=== PATIENT | male | born 1945 | race Caucasian/White ===

== ENCOUNTER 2021-08-20 10:43 | Emergency (ER) | payer OTHER ==
[~2021-08-20] VITALS: Ht 160 cm; Wt 69.9 kg
[2021-08-20 10:50] VITALS: BP 180/87
--- NOTE | 2021-08-20 11:00 | NUR ---
75 y/o M BIB son c/o abdominal pain, nausea, vomiting x 1 day. Patient A&Ox4, ambulatory, reports seen at PCP earlier for symptoms and advised for ER evaluation to r/o pancreatitis and uncontrolled DM. Pt erports acute onset of epigastric and mid abdomen pain while asleep last night with associated nausea + vomiting x >10 episodes. Pt reports 10/10, pressure/constant, non-radiating pain to epigastric and mid abdomen since last night. States good PO and fluid intake, reports constipation x 2 days. Pt also states bilateral LLE x 2 days. Patient denies diarrhea, fever, chills, chest pain, back pain, dizziness, headache. Pt denies any medications prior to arrival. AccuChek in triage ~270. Patient states sometimes not compliant with DM medications. Pt placed into a gown, UA collected, desk monitor in place. Bed locked in lowest position, side rails x 1. Son at bedside. PMH: DM, HTN Meds: metformin, glipizide, unknown HTN med NKA Sx: Denies
--- NOTE | 2021-08-20 11:05 | NUR ---
Dr. Arce is evaluating patient at bedside
[2021-08-20] MEDS ORDERED: MORPHINE SULFATE 2 MG/ML SYR IVP ONE (11:20)
[2021-08-20] MEDS ORDERED: ONDANSETRON 4 MG/2 ML VIAL IVP ONE (11:20)
--- NOTE | 2021-08-20 11:30 | NUR ---
EMT at bedside for EKG
--- NOTE | 2021-08-20 11:31 | NUR ---
PER ERMD 12 LEAD WAS DONE ON PT AND CAME BACK NSR AT 65 HR.
--- NOTE | 2021-08-20 11:32 | NUR ---
RAD at bedside
--- NOTE | 2021-08-20 11:34 | NUR ---
UA and blood sample walked to lab, handed to CPT Yi.
--- NOTE | 2021-08-20 11:35 | NUR ---
CT consent form signed. Son remains at bedside
[2021-08-20 11:46] LABS: BASOPHILS % (AUTO) 0.1 % (0.0-2.0); EOSINOPHILS % (AUTO) 0.2 % (0.0-4.0); HEMATOCRIT 35.5 % (36-52); HEMOGLOBIN 11.8 g/dL (12.0-18.0); LYMPHOCYTES # (AUTO) 0.6 K/uL (2.0-11.5); MEAN CORPUSCULAR HEMOGLOBIN 29 pg (27-31); MEAN CORPUSCULAR HGB CONC 33 g/dL (33-37); MEAN CORPUSCULAR VOLUME 88.2 fL (80-94); MONOCYTES # (AUTO) 0.5 K/uL (0.8-1.0); MONOCYTES % (AUTO) 4.5 % (1.7-9.3); NEUTROPHILS # (AUTO) 10.4 K/uL (1.8-7.7); NEUTROPHILS % (AUTO) 90.2 % (42.2-75.2); PLATELET COUNT (AUTO) 236 K/uL (140-450); RED BLOOD CELL COUNT(AUTO) 4.02 MIL/uL (4.20-6.10); RED CELL DISTRIBUTION WIDTH 14.4 % (11.6-13.7); WHITE BLOOD COUNT (AUTO) 11.6 K/uL (4.8-10.8)
[2021-08-20 11:48] LABS: APPEARANCE,URINE CLEAR (CLEAR); BILIRUBIN,URINE NEGATIVE (NEGATIVE); BLOOD, URINE 2+ (NEGATIVE); COLOR,URINE YELLOW (YELLOW); LEUKOCYTE ESTERASE ,URINE NEGATIVE (NEGATIVE); NITRITE, URINE NEGATIVE (NEGATIVE); UGLUCOSE 3+ (NEGATIVE)
[2021-08-20 11:53] LABS: CARBON DIOXIDE 22.3 mmol/L (21-32); CHLORIDE 101 mmol/L (98-107); CREATININE 1.2 mg/dL (0.6-1.3); GLUCOSE 286 mg/dL (74-106); POTASSIUM 4.3 mmol/L (3.5-5.1); SODIUM SERUM 133 mmol/L (136-145); UREA NITROGEN, BLOOD 20 mg/dL (7-18)
[2021-08-20 11:57] LABS: ALBUMIN 3.7 g/dL (3.4-5.0); BILIRUBIN,DIRECT 0.1 mg/dL (0.0-0.3); TOTAL BILIRUBIN 0.4 mg/dL (0.0-1.0); WBC,URINE 0-5 /HPF (0-5)
--- NOTE | 2021-08-20 12:18 | NUR ---
CT notified patient is ready for CT
[2021-08-20] MEDS ORDERED: ONDA-24 PO (13:44)
[2021-08-20] MEDS ORDERED: BISA-28 PO (13:44)
[2021-08-20] MEDS ORDERED: FAMO-90 PO (13:44)
[2021-08-20 14:00] VITALS: BP 164/88
--- NOTE | 2021-08-20 14:04 | NUR ---
Patient discharged with v/s stable. Written and verbal after care instructions given and explained. Patient alert, oriented and verbalized understanding of instructions. Ambulatory with steady gait. All questions addressed prior to discharge. ID band removed. Patient advised to follow up with PMD. Rx of Zofran, Pepcid, Bisacodyl given. Patient educated on indication of medication including possible reaction and side effects. Opportunity to ask questions provided and answered.
== END 2021-08-20 14:04 | disposition home or self-care (01) ==
LOC: MED 10:43
DX: R10.13 Epigastric pain (principal); K59.00 Constipation, unspecified; R11.2 Nausea with vomiting, unspecified; I10 Essential (primary) hypertension; E11.9 Type 2 diabetes mellitus without complications
CPT/HCPCS: 36415; 71045; 74177; 80048; 80076; 81001; 83690; 83880; 84484; 85025; 96374; 96375; 99285; J2270; J2405; Q0092; Q9967